=== PATIENT | female | born 1980 | race Caucasian/White ===

== ENCOUNTER → 2021-02-05 | Outpatient (CLI) | payer OTHER | END | disposition home or self-care (01) | LOC: LAB SHORT 09:10 → LAB 09:10 | DX: D72.829 Elevated white blood cell count, unspecified (principal) | CPT/HCPCS: 87086 ==

== ENCOUNTER 2022-08-08 22:27 | Observation (INO) | payer OTHER ==
[~2022-08-08] VITALS: Ht 160 cm; Wt 79.4 kg
[2022-08-08 23:01] LABS: BASOPHILS ABSOLUTE AUTO 0.08 K/mm3 (0.00-0.23); BASOPHILS PERCENT AUTO 1 % (0-2); EOSINOPHILS ABSOLUTE AUTO 0.25 K/mm3 (0.00-0.68); EOSINOPHILS PERCENT AUTO 1 % (0-6); Hemoglobin 13.9 g/dL (11.5-16.0); Mean Corpuscular HGB Conc 34.8 g/dL (31.5-36.5); Mean Corpuscular Volume 86 fL (80-100); Mean Platelet Volume 11.4 fL (9.1-12.4); Platelet Count 275 K/mm3 (150-400); RDW Coefficient Variation 12.2 % (11.7-14.2); RDW Standard Deviation 38.5 fL (35.1-46.3); Red Blood Cell Count 4.64 M/mm3 (3.80-5.20); White Blood Cell Count 17.51 K/mm3 (4.00-11.30)
[2022-08-08 23:01] LABS: Source, Urine Clean Catch
[2022-08-08 23:02] LABS: IMMATURE GRAN ABSOLUTE AUTO 0.06 K/mm3 (0.00-0.10); IMMATURE GRAN PERCENT AUTO 0 % (0-1); LYMPHOCYTES ABSOLUTE AUTO 5.71 K/mm3 (0.84-5.20); LYMPHOCYTES PERCENT AUTO 33 % (21-46); MONOCYTES PERCENT AUTO 9 % (4-13); NEUTROPHILS ABSOLUTE AUTO 9.91 K/mm3 (1.96-9.15); NEUTROPHILS PERCENT AUTO 57 % (41-73)
[2022-08-08 23:08] LABS: Bilirubin, Urine Neg (Neg); Blood, Urine 2+ (Neg); Glucose Qualitative, Urine Neg (Neg); Ketones, Urine 4+ (Neg); Leukocyte Esterase, Urine 2+ (Neg); Nitrite, Urine Neg (Neg); Protein, Urine 1+ (Neg); Urobilinogen, Urine 1+ (Normal)
[2022-08-08 23:15] LABS: Appearance, Urine Hazy (Clear); Color, Urine Yellow (P-Yellow)
[2022-08-08 23:16] LABS: Amorphous Mod (0-Heavy); Bacteria Mod /hpf; Mucus Light (0-Heavy); Red Blood Cells, Urine 0-2 /hpf (0-2); Squamous Epithelial Cells Mod /hpf (Few)
[2022-08-08 23:24] LABS: Albumin, Blood 3.8 g/dL (3.4-5.0); Albumin/Globulin Ratio 1.1 (0.8-1.8); Bilirubin, Total 0.6 mg/dL (0.1-1.0); Bun/Creatinine Ratio 16.1 (12.0-20.0); Calcium, Blood 8.8 mg/dL (8.5-10.1); Creatinine, Blood 0.69 mg/dL (0.40-1.00); Globulin, Blood 3.4 g/dL (2.2-4.0); Potassium, Blood 3.6 mmol/L (3.5-5.5); Total Protein, Blood 7.2 g/dL (6.4-8.2)
[2022-08-09] MEDS ORDERED: ZYRTEC10 M2 PO (01:00)
[2022-08-09] MEDS ORDERED: HYDPAM25 PO (01:00)
[2022-08-09] MEDS ORDERED: FAMO10 PO (01:00)
--- NOTE | 2022-08-09 06:50 | NUR ---
RECIEVED HAND OFF FROM [facility] IN ER USING SBAR AT 0115HRS. TRANSPORTED TO ROOM VIA STRETCHER WITH PERSONAL BELONGING IN POSSESSION. AAO [id number], GLADYS, FOLLOWS ALL COMMANDS. RATED PAIN AT 7 OUT OF 10 TO ABDOMEN. MEDICATED PER EMAR. ADMISSION ASSESSMENT COMPLETED AFTER CONTACTING ADMITTING MD FOR ORDERS. KEPT NPO FOR SX IN AM. PER SX SKIN PREP COMPLETED. DENIES PAIN, DISCOMFORT, OR FURTHER NEEDS AT THIS TIME. SAFETY MEASURES IN PLACE. WILL GIVE HAND OFF TO ONCOMING SHIFT USING SBAR.
[2022-08-09] MEDS ORDERED: VENL37.5 PO (15:12)
[2022-08-09] MEDS ORDERED: BUSP10 PO (15:13)
[2022-08-09] MEDS ORDERED: FLUT1DIS2 INH (15:16)
--- NOTE | 2022-08-09 18:25 | NUR ---
SHIFT SUMMARY PATIENT ALERT AND ORIENTED WHEN IN ROOM. WENT FOR LAP CHOLECYSTECTOMY TODAY WITH DR VIVAR. POD 0, 5 LAP SITES C/D/I ANT FLORIDALMA WITH DERMABOND. PATIENT REPORTS MODERATE ABD PAIN CONTROLLED WITH PO OXYCODONE AND TYLENOL. SALINE LOCKED, VOIDING WELL. TOLERATING REGULAR PO FLUIDS AND TRAYS. DENIES NAUSEA. INDEPENDENT IN ROOM. PLAN TO DISCHARGE HOME TOMORROW 08/10/22.
--- NOTE | 2022-08-10 01:17 | NUR ---
CARE ASSUMPTION: PATIENT A&O X4, REPORTS MILD DISCOMFORT AT UPPER LAP SITE, ALL NIDA SITES C/D/I AND OPEN TO AIR. MEDICATED PER EMAR. PATIENT TOLERATING PO. INDEPENDENT IN ROOM. BED LOW WITH CALL LIGHT IN REACH.
--- NOTE | 2022-08-10 05:14 | NUR ---
SHIFT SUMMARY: PATIENT A&O X4, INDEPENDENT IN ROOM, INCISIONS C/D/I. PATIENT REPORTS UPPER LAP SITE IS SORE BUT DOES NOT HAVE INFLAMMATION/EXUDATE OR OTHER ABNORMALITIES. PATIENT USES CALL LIGHT APPROPRIATELY AND IS COOPERATIVE WITH CARE. SLEPT >6 HRS T/O NIGHT. NO ADVERSE EVENTS THIS SHIFT. BED LOW WITH CALL LIGHT IN REACH. WILL CONTINUE TO MONITOR UNTIL REPORT TO DAY RN.
--- NOTE | 2022-08-10 06:45 | NUR ---
SHIFT SUMMARY: PATIENT A&O X4, USES CALL LIGHT APPROPRIATELY. MEDICATED PER EMAR. SBA TO BSC. REPORTS PAIN IN LLE WHICH HAS SIGNIFICANT BRUISING. NO ADVERSE EVENTS THIS SHIFT. PATIENT HAS DIFFICULTY SEEING CALL LIGHT BUTTONS BUT USES CALL LIGHT APPROPRIATELY. BED LOW WITH CALL LIGHT IN PLACE. WILL CONTINUE TO MONITOR UNTIL REPORT TO DAY RN.
[2022-08-10] MEDS ORDERED: OXAYDO5 M1 PO (11:53)
== END 2022-08-10 12:16 | disposition home or self-care (01) ==
LOC: ER 22:27 → SURS 22:28 → ER 08-09 00:18 → SURS 08-09 00:18 → ER 08-09 01:10 → SURS 08-09 01:10
PROVIDERS: Physician Assistant; ADMIT Surgery
PROC: 0FT44ZZ Resection of Gallbladder, Percutaneous Endoscopic Approach (ICD-10-PCS; principal; 2022-08-09 09:45)
DX: K80.12 Calculus of gallbladder with acute and chronic cholecystitis without obstruction (principal); Z88.0 Allergy status to penicillin; F41.9 Anxiety disorder, unspecified; F32.A Depression, unspecified; K21.9 Gastro-esophageal reflux disease without esophagitis
CPT/HCPCS: 36415; 74177; 80053; 81001; 81025; 83690; 85025; 87086; 88304; 94640; 94664; 96361; 96365; 96365-59; 96366; 96368; 96375; 99285-25; A9270; G0378; J0744; J1100; J1170; J1885; J2250; J2270; J2405; J2704; J2795; J3010; J7030; J7120; Q0177; Q9967